=== PATIENT | female | born 1990 | race Caucasian/White ===

== ENCOUNTER → 2020-03-03 | Outpatient (CLI) | payer OTHER ==
--- NOTE | 2020-03-03 16:56 | RADIOLOGY REPORT (SQ) ---
EXAM DESCRIPTION: U/S THYROID/SFT TISS HD NECK IMAGES COMPLETED DATE/TIME: 03/03/2020 4:32 pm REASON FOR STUDY: E04.1 NONTOXIC SINGLE THYROID NODULE E04.1 NONTOXIC SINGLE THYROID NODULE COMPARISON: None. TECHNIQUE: Dynamic and static irwin-scale images acquired of the thyroid gland. Selected additional c olor/power Doppler images recorded. All images stored to PACS. LIMITATIONS: None. FINDINGS: RIGHT LOBE: The right lobe of the thyroid gland measures 4.7 x 1.3 x 2.0 cm, normal size. Heterogenous echotexture. A 1.0 x 0.8 x 0.7 cm solid, smooth, hypoechoic nodule in the medial aspe ct of the upper- mid pole. LEFT LOBE: Left lobe of the thyroid gland measures 4.4 x 1.8 x 1.7 cm, normal size. Heterogenous ec hotexture. No cystic or solid masses. ISTHMUS: The isthmus measures 6 mm in AP diameter and is mildly prominent in size. Heterogenous ech otexture. No cystic or solid masses. OTHER: No other significant finding. IMPRESSION: 1. The prior ultrasound examination dated 12/23/2019 is not available at this reading. 2. Heterogenous echotexture to the thyroid gland. A solid nodule in the right lobe of the thyroid g land as above. (TI--RADS 4-- Moderate suspicious) 3. Please see comments below. TECHNICAL DOCUMENTATION: JOB ID: [id number] 2010 [employer]- All Rights Reserved Reading location - IP/workstation name: [email or web address]
== END ==
LOC: RAD 15:49
PROVIDERS: ATTEND Internal Medicine Geriatric Medicine
DX: E04.1 Nontoxic single thyroid nodule (principal)
CPT/HCPCS: 76536

== ENCOUNTER → 2020-03-26 | Outpatient (CLI) | payer OTHER ==
--- NOTE | 2020-03-26 16:23 | RADIOLOGY REPORT (SQ) ---
EXAM DESCRIPTION: U/S THYROID/SFT TISS HD NECK IMAGES COMPLETED DATE/TIME: 03/26/2020 4:13 pm REASON FOR STUDY: E04.1 NONTOXIC SINGLE THYROID NODULE COMPARISON: None. TECHNIQUE: Patient referred for FNA of right thyroid nodule. Patient was prepped in usual sterile f ashion. 1% lidocaine was administered. Safe window could not be obtained. Nodule is very posterior . LIMITATIONS: None. FINDINGS: See above. IMPRESSION: Unsuccessful FNA, safe window could not be obtained. TECHNICAL DOCUMENTATION: JOB ID: [id number] 2010 [employer]- All Rights Reserved Reading location - IP/workstation name: [email or web address]
== END ==
LOC: RAD 13:30 → EDSTATUS 15:25
PROVIDERS: ATTEND Internal Medicine Geriatric Medicine
DX: E04.1 Nontoxic single thyroid nodule (principal)
CPT/HCPCS: 76536